=== PATIENT | female | born 1975 | race Caucasian/White ===

== ENCOUNTER → 2017-02-02 | Outpatient (CLI) | payer OTHER ==
[~2017-02-02] MED LIST: ACET500T2 OR; LISI10TA4 OR
--- NOTE | 2017-02-02 10:55 | REPMRS ---
Patient History The patient states she had a clinical breast exam in 02/05 Patient is postmenopausal and has history of endometrial cancer at age 36. Family history of unknown cancer in father at age 60, unknown cancer in mother at age 66, breast cancer in paternal aunt at age 50 or over, unknown cancer in paternal grandmother at age 50 or over, breast cancer in maternal grandmother at age 50 or over, unknown cancer in 2 maternal cousins, unknown cancer in paternal uncle at age 50 or over, prostate cancer in 2 maternal uncles at age 50 or over, and unknown cancer in maternal uncle at age 50 or over. Took hormonal contraceptives for 1 year 6 months. Took unspecified hormones for 2 years. Digital Woman Screen Mammo: February 02, 2017 - Exam #: [id number] Bilateral CC and MLO view(s) were taken. Technologist: Joanie Reyes, Technologist Prior study comparison: January 23, 2016, digital woman screen mammo performed at [facility]. December 28, 2014, digital mammo diagnostic bilateral, performed at [facility]. FINDINGS: There are scattered fibroglandular densities. There has been no change in the appearance of the mammogram from the prior studies. There is a mild amount of residual fibroglandular tissue which is fairly symmetric. There is no interval development of dominant mass, architectural distortion, or clustered microcalcification suggestive of malignancy. ASSESSMENT: BI-RADS/ACR category 1 mammogram. Negative. Recommendation Routine screening mammogram in 1 year (for women over age 40). This mammogram was interpreted with the aid of an FDA-approved computer-aided dectection system. Electronically Signed By: Daniel Hager MD 02/02/17 0709
== END ==
LOC: M WHC 10:23
PROVIDERS: ATTEND Obstetrics & Gynecology
DX: Z12.39 Encounter for other screening for malignant neoplasm of breast (principal)

== ENCOUNTER → 2017-02-26 | Outpatient (REF) | payer OTHER ==
[2017-02-26 13:33] LABS: BASO % 0.4 % (0.0-1.0); EOS # 0.1 K/mm3 (0.0-0.50); EOS % 1.3 % (0.0-3.0); LARGE UNSTAINED CELL # 0.1 K/mm3 (0.0-0.4); LARGE UNSTAINED CELL % 2.1 % (0.0-4.0); LYMPH # 1.7 K/mm3 (1.5-4.5); LYMPH % 33.6 % (24.0-44.0); MEAN CORPUSCULAR HEMOGLOBIN 28.2 pg (27.0-33.0); MEAN CORPUSCULAR HGB CONC 33.2 g/dl (32.0-36.5); MEAN CORPUSCULAR VOLUME 84.8 fl (80.0-96.0); MONO # 0.2 K/mm3 (0.0-0.8); MONO % 4.5 % (0.0-5.0); NEUTROPHILS # 2.8 K/mm3 (1.8-7.7); NEUTROPHILS % 58.1 % (36.0-66.0); PLATELET COUNT, AUTOMATED 262 k/mm3 (150-450); WHITE BLOOD COUNT 4.8 K/mm3 (4.0-10.0)
[2017-02-26 14:07] LABS: ALBUMIN/GLOBULIN RATIO 1.14 (1.00-1.93); ALKALINE PHOSPHATASE 79 U/L (45-117); ALT/SGPT 29 U/L (12-78); ANION GAP 11 MEQ/L (8-16); AST/SGOT 12 U/L (15-37); BILIRUBIN,TOTAL 0.7 MG/DL (0.2-1.0); BLOOD UREA NITROGEN 13 MG/DL (7-18); CALCIUM LEVEL 10.3 MG/DL (8.5-10.1); CARBON DIOXIDE LEVEL 29 MEQ/L (21-32); CHLORIDE LEVEL 104 MEQ/L (98-107); CHOLESTEROL LEVEL 200 MG/DL (<200); CREATININE FOR GFR 0.86 MG/DL (0.55-1.02); FREE T4 1.31 NG/DL (0.76-1.46); GLOMERULAR FILTRATION RATE > 60.0 (>58); GLUCOSE, FASTING 99 MG/DL (70-105); POTASSIUM SERUM 4.5 MEQ/L (3.5-5.1); SODIUM LEVEL 144 MEQ/L (136-145); TOTAL PROTEIN 7.5 GM/DL (6.4-8.2); TRIGLYCERIDES LEVEL 213 MG/DL (<150)
== END ==
LOC: M SFHCADAM 09:09
PROVIDERS: ATTEND Physician Assistant Medical
DX: I10 Essential (primary) hypertension (principal); R73.01 Impaired fasting glucose; E55.9 Vitamin D deficiency, unspecified

== ENCOUNTER → 2017-11-17 | Outpatient (REF) | payer OTHER | LOC: M SFHCADAM 07:33 | DX: E66.01 Morbid (severe) obesity due to excess calories (principal); I10 Essential (primary) hypertension; R73.01 Impaired fasting glucose ==

== ENCOUNTER → 2017-11-18 | Outpatient (REF) | payer OTHER ==
[2017-11-18 21:20] LABS: ESTIMATED AVERAGE GLUCOSE 123 MG/DL (60-110); HEMOGLOBIN A1c 5.9 %
[2017-11-18 21:59] LABS: ALBUMIN 3.8 GM/DL (3.2-5.2); ALBUMIN/GLOBULIN RATIO 1.15 (1.00-1.93); ALKALINE PHOSPHATASE 76 U/L (45-117); ALT/SGPT 27 U/L (12-78); ANION GAP 7 MEQ/L (8-16); AST/SGOT 18 U/L (7-37); BILIRUBIN,TOTAL 0.5 MG/DL (0.2-1.0); BLOOD UREA NITROGEN 13 MG/DL (7-18); CALCIUM LEVEL 9.3 MG/DL (8.5-10.1); CARBON DIOXIDE LEVEL 30 MEQ/L (21-32); CHLORIDE LEVEL 106 MEQ/L (98-107); CHOLESTEROL LEVEL 179 MG/DL (<200); CREATININE FOR GFR 0.81 MG/DL (0.55-1.30); GLOMERULAR FILTRATION RATE > 60.0 (>58); GLUCOSE, FASTING 106 MG/DL (70-100); HDL CHOLESTEROL 50 MG/DL (>40); LDL CHOLESTEROL 95.2 MG/DL (<100); NON-HDL-C 129 MG/DL; POTASSIUM SERUM 3.9 MEQ/L (3.5-5.1); SODIUM LEVEL 143 MEQ/L (136-145); TOTAL PROTEIN 7.1 GM/DL (6.4-8.2); TRIGLYCERIDES LEVEL 169 MG/DL (<150)
[2017-11-18 22:36] LABS: BASO % 0.4 % (0.0-1.0); EOS # 0.1 10^3/uL (0.0-0.50); HEMATOCRIT 37.9 % (36.0-47.0); HEMOGLOBIN 12.3 g/dl (12.0-15.5); IMMATURE GRANULOCYTE % 0.2 % (0-3.0); LYMPH # 1.8 10^3/uL (1.5-4.5); LYMPH % 36.1 % (24.0-44.0); MEAN CORPUSCULAR HEMOGLOBIN 27.5 pg (27.0-33.0); MEAN CORPUSCULAR HGB CONC 32.5 g/dl (32.0-36.5); MEAN CORPUSCULAR VOLUME 84.8 fl (80.0-96.0); MONO # 0.3 10^3/uL (0.0-0.8); MONO % 6.6 % (0.0-5.0); NEUTROPHILS # 2.7 10^3/uL (1.8-7.7); NEUTROPHILS % 55.7 % (36.0-66.0); PLATELET COUNT, AUTOMATED 270 10^3/uL (150-450); RED BLOOD COUNT 4.47 10^6/uL (4.00-5.40); RED CELL DISTRIBUTION WIDTH 13.3 % (11.5-14.5); WHITE BLOOD COUNT 4.9 10^3/uL (4.0-10.0)
== END ==
LOC: M SFHCADAM 08:49
DX: E78.5 Hyperlipidemia, unspecified (principal); I10 Essential (primary) hypertension; R73.01 Impaired fasting glucose

== ENCOUNTER → 2018-02-10 | Outpatient (CLI) | payer OTHER | LOC: M WHC 12:50 | DX: Z12.31 Encounter for screening mammogram for malignant neoplasm of breast (principal) | CPT/HCPCS: 77067 ==

== ENCOUNTER → 2018-04-30 | Outpatient (REF) | payer OTHER ==
[2018-04-30 13:57] LABS: ALBUMIN 3.7 GM/DL (3.2-5.2); ALBUMIN/GLOBULIN RATIO 1.12 (1.00-1.93); ALKALINE PHOSPHATASE 76 U/L (45-117); ALT/SGPT 24 U/L (12-78); ANION GAP 8 MEQ/L (8-16); AST/SGOT 12 U/L (7-37); BILIRUBIN,TOTAL 0.4 MG/DL (0.2-1.0); BLOOD UREA NITROGEN 17 MG/DL (7-18); CALCIUM LEVEL 9.3 MG/DL (8.5-10.1); CARBON DIOXIDE LEVEL 29 MEQ/L (21-32); CHLORIDE LEVEL 103 MEQ/L (98-107); CHOLESTEROL LEVEL 199 MG/DL (<200); CHOLESTEROL RISK RATIO 4.422 (<5); CREATININE FOR GFR 0.84 MG/DL (0.55-1.30); GLOMERULAR FILTRATION RATE > 60.0 (>58); GLUCOSE, FASTING 105 MG/DL (70-100); HDL CHOLESTEROL 45 MG/DL (>40); LDL CHOLESTEROL 105 MG/DL (<100); NON-HDL-C 154 MG/DL; SODIUM LEVEL 140 MEQ/L (136-145); TRIGLYCERIDES LEVEL 245 MG/DL (<150)
[2018-04-30 15:24] LABS: ESTIMATED AVERAGE GLUCOSE 123 MG/DL (60-110); HEMOGLOBIN A1c 5.9 %
== END ==
LOC: M SFHCADAM 08:51
DX: I10 Essential (primary) hypertension (principal); E78.5 Hyperlipidemia, unspecified; R73.01 Impaired fasting glucose

== ENCOUNTER → 2018-10-15 | Outpatient (REF) | payer OTHER ==
[2018-10-15 13:22] LABS: BASO % 0.6 % (0.0-1.0); EOS # 0.1 10^3/uL (0.0-0.50); EOS % 1.4 % (0.0-3.0); HEMATOCRIT 39.7 % (36.0-47.0); HEMOGLOBIN 12.8 g/dl (12.0-15.5); LYMPH # 1.6 10^3/uL (1.5-4.5); LYMPH % 32.3 % (24.0-44.0); MEAN CORPUSCULAR HEMOGLOBIN 27.5 pg (27.0-33.0); MEAN CORPUSCULAR HGB CONC 32.2 g/dl (32.0-36.5); MEAN CORPUSCULAR VOLUME 85.4 fl (80.0-96.0); MONO # 0.4 10^3/uL (0.0-0.8); MONO % 7.1 % (0.0-5.0); NEUTROPHILS % 58.4 % (36.0-66.0); PLATELET COUNT, AUTOMATED 290 10^3/uL (150-450); RED BLOOD COUNT 4.65 10^6/uL (4.00-5.40); WHITE BLOOD COUNT 5.1 10^3/uL (4.0-10.0)
[2018-10-15 13:34] LABS: ALBUMIN 3.7 GM/DL (3.2-5.2); ALT/SGPT 29 U/L (12-78); BILIRUBIN,TOTAL 0.7 MG/DL (0.2-1.0); BLOOD UREA NITROGEN 16 MG/DL (7-18); CALCIUM LEVEL 9.6 MG/DL (8.5-10.1); CARBON DIOXIDE LEVEL 30 MEQ/L (21-32); CHLORIDE LEVEL 104 MEQ/L (98-107); CHOLESTEROL LEVEL 186 MG/DL (<200); CHOLESTEROL RISK RATIO 4.133 (<5); CREATININE FOR GFR 0.92 MG/DL (0.55-1.30); GLOMERULAR FILTRATION RATE > 60.0 (>58); GLUCOSE, FASTING 105 MG/DL (70-100); HDL CHOLESTEROL 45 MG/DL (>40); NON-HDL-C 141 MG/DL; POTASSIUM SERUM 4.6 MEQ/L (3.5-5.1); SODIUM LEVEL 142 MEQ/L (136-145); TOTAL 25(OH) VITAMIN D 23.5 NG/ML (30.0-100.0); TOTAL PROTEIN 7.4 GM/DL (6.4-8.2); TRIGLYCERIDES LEVEL 225 MG/DL (<150)
[2018-10-15 14:51] LABS: MALB URINE SIEMENS 10.6 MG/L; MAU/CREAT RATIO 5.4 MCG/MG (0.0-30.0)
== END ==
LOC: M SFHCADAM 09:00
PROVIDERS: ATTEND Physician Assistant Medical
DX: E66.01 Morbid (severe) obesity due to excess calories (principal); E78.5 Hyperlipidemia, unspecified; E55.9 Vitamin D deficiency, unspecified; R73.01 Impaired fasting glucose

== ENCOUNTER → 2019-04-15 | Outpatient (CLI) | payer OTHER ==
--- NOTE | 2019-04-15 09:49 | REPMRS ---
Patient History The patient states she had a clinical breast exam in 01/2019. Patient is postmenopausal and has history of endometrial cancer at age 36. Family history of breast cancer at age 50 or over in maternal grandmother, breast cancer at age 50 or over in paternal aunt, prostate cancer at age 50 or over in maternal uncle, prostate cancer at age 50 or over in maternal uncle, prostate cancer at age 50 or over in maternal uncle, prostate cancer at age 50 or over in maternal uncle. Took hormonal contraceptives for 1 year 6 months. Took unspecified hormones for 2 years. 3D TOMOSYNTHESIS WAS PERFORMED. The [facility] lifetime risk for breast cancer is 13.4%. Digital Woman Screen Mammo: April 15, 2019 - Exam #: [id number] Bilateral CC and MLO view(s) were taken. Technologist: Amalia Elder, Technologist Prior study comparison: February 10, 2018, bilateral digital woman screen mammo performed at [facility]. February 02, 2017, digital woman screen mammo performed at [facility]. FINDINGS: There are scattered fibroglandular densities. There has been no change in the appearance of the mammogram from the prior studies. There is a mild amount of residual fibroglandular tissue which is fairly symmetric. There is no interval development of dominant mass, architectural distortion, or clustered microcalcification suggestive of malignancy. Assessment: BI-RADS/ACR category 1 mammogram. Negative Mammogram. Recommendation Routine screening mammogram in 1 year (for women over age 40). This mammogram was interpreted with the aid of an FDA-approved computer-aided dectection system. Electronically Signed By: Daniel Hager MD 04/15/19 0913
== END ==
LOC: M WHC 07:57
PROVIDERS: ATTEND Obstetrics & Gynecology
DX: Z12.31 Encounter for screening mammogram for malignant neoplasm of breast (principal)

== ENCOUNTER → 2019-05-02 | Outpatient (REF) | payer OTHER ==
[2019-05-02 13:04] LABS: ALBUMIN 3.5 GM/DL (3.2-5.2); ALT/SGPT 23 U/L (12-78); BILIRUBIN,TOTAL 0.5 MG/DL (0.2-1.0); BLOOD UREA NITROGEN 16 MG/DL (7-18); CALCIUM LEVEL 9.3 MG/DL (8.5-10.1); CARBON DIOXIDE LEVEL 32 MEQ/L (21-32); CHLORIDE LEVEL 104 MEQ/L (98-107); CHOLESTEROL LEVEL 190 MG/DL (<200); CHOLESTEROL RISK RATIO 4.042 (<5); CREATININE FOR GFR 0.99 MG/DL (0.55-1.30); GLOMERULAR FILTRATION RATE > 60.0 (>58); GLUCOSE, FASTING 101 MG/DL (70-100); HDL CHOLESTEROL 47 MG/DL (>40); LDL CHOLESTEROL 100 MG/DL (<100); NON-HDL-C 143 MG/DL; POTASSIUM SERUM 4.4 MEQ/L (3.5-5.1); SODIUM LEVEL 140 MEQ/L (136-145); TOTAL PROTEIN 6.8 GM/DL (6.4-8.2); TRIGLYCERIDES LEVEL 216 MG/DL (<150)
[2019-05-02 14:02] LABS: HEMOGLOBIN A1c 5.9 %
== END ==
LOC: M SFHCADAM 08:48
PROVIDERS: ATTEND Physician Assistant Medical
DX: I10 Essential (primary) hypertension (principal); E66.01 Morbid (severe) obesity due to excess calories; E78.5 Hyperlipidemia, unspecified; E55.9 Vitamin D deficiency, unspecified; R73.01 Impaired fasting glucose; K21.9 Gastro-esophageal reflux disease without esophagitis

== ENCOUNTER → 2019-09-19 | Outpatient (CLI) | payer OTHER ==
--- NOTE | 2019-09-19 17:35 | REP ---
CHEST, TWO VIEWS: There is no evidence of acute infiltrate. No pleural effusion is seen. The heart is normal in size. The mediastinal silhouette is unremarkable. The visualized osseous structures are intact. IMPRESSION: No acute pulmonary disease. Electronically Signed by Daniel Hager MD 09/20/2019 10:27 A
== END ==
LOC: M ADAMS 15:42
PROVIDERS: ATTEND Physician Assistant Medical
DX: R05 Cough (principal); J02.9 Acute pharyngitis, unspecified

== ENCOUNTER → 2019-10-25 | Outpatient (REF) | payer OTHER ==
[2019-10-25 13:11] LABS: HEMATOCRIT 39.2 % (36.0-47.0); HEMOGLOBIN 12.6 g/dl (12.0-15.5); MEAN CORPUSCULAR HEMOGLOBIN 27.2 pg (27.0-33.0); MEAN CORPUSCULAR HGB CONC 32.1 g/dl (32.0-36.5); MEAN CORPUSCULAR VOLUME 84.7 fl (80.0-96.0); PLATELET COUNT, AUTOMATED 266 10^3/uL (150-450); RED BLOOD COUNT 4.63 10^6/uL (4.00-5.40); WHITE BLOOD COUNT 5.8 10^3/uL (4.0-10.0)
[2019-10-25 13:33] LABS: HEMOGLOBIN A1c 6.1 %
[2019-10-25 13:37] LABS: BLOOD UREA NITROGEN 12 MG/DL (7-18); CALCIUM LEVEL 9.6 MG/DL (8.5-10.1); CARBON DIOXIDE LEVEL 30 MEQ/L (21-32); CHLORIDE LEVEL 106 MEQ/L (98-107); CREATININE FOR GFR 0.77 MG/DL (0.55-1.30); GLOMERULAR FILTRATION RATE > 60.0 (>58); GLUCOSE, FASTING 104 MG/DL (70-100); POTASSIUM SERUM 4.3 MEQ/L (3.5-5.1); SODIUM LEVEL 141 MEQ/L (136-145)
[2019-10-25 13:38] LABS: ALBUMIN 3.7 GM/DL (3.2-5.2); ALT/SGPT 25 U/L (12-78); BILIRUBIN,TOTAL 0.4 MG/DL (0.2-1.0)
== END ==
LOC: M SFHCADAM 09:39
PROVIDERS: ATTEND Physician Assistant Medical
DX: K21.9 Gastro-esophageal reflux disease without esophagitis (principal); R73.01 Impaired fasting glucose; R73.03 Prediabetes

== ENCOUNTER → 2020-04-17 | Outpatient (CLI) | payer OTHER ==
--- NOTE | 2020-04-17 13:42 | REP ---
INDICATION: JUDY SCR MAMMO/Z12.31. Family history of breast cancer in maternal grandmother and paternal aunt. COMPARISON: Mammogram 04/15/2019 as well as other prior exams. TECHNIQUE: Digital screening (2D) mammography was performed bilaterally. Additionally, breast tomosynthesis (3D mammography) was performed bilaterally in the CC and MLO projections and compared to the prior exam(s). FINDINGS: There is mild scattered fibroglandular tissue is again seen bilaterally. Anteromedially on the right CC view an irregular nodular density is seen. It measures slightly greater than 1 cm in diameter. It may be projecting inferiorly on the corresponding MLO projection of the right breast. Otherwise no mass or clustered microcalcifications are seen bilaterally. Volpara breast density B. Tyrer-Cuzick lifetime risk of breast cancer 13.2%. IMPRESSION: BI-RADS category 0 incomplete mammogram. Possible irregular nodule anteromedial right breast versus artifact. Recommend spot compression views to further evaluate. Also ultrasound may be necessary. This mammogram was read with the assistance of [employer], an FDA approved computer aided detection system for mammography. Negative x-ray reports should not delay surgical consultation if a dominant or clinically suspicious mass is present. Not all breast cancers can be identified by mammography. Therefore, we recommend that you continue to perform regular breast self-examination and physical examination and then promptly contact your physician of any concerns or changes. Adenosis and dense breasts may obscure an underlying neoplasm. Letter M0. <Electronically signed by Daniel Hager > 04/17/20 0191
== END ==
LOC: M WHC 10:22
PROVIDERS: ATTEND Obstetrics & Gynecology
DX: Z12.31 Encounter for screening mammogram for malignant neoplasm of breast (principal)

== ENCOUNTER → 2020-04-25 | Outpatient (CLI) | payer OTHER ==
--- NOTE | 2020-04-25 11:35 | REP ---
INDICATION: ADDITIONAL VIEWS RT BREAST. COMPARISON: 04/17/2020 as well as other prior exams. TECHNIQUE: Multiple spot compression views and tomographic sequences are obtained to evaluate a possible focal irregular nodular density medially in the right breast. FINDINGS: These multiple spot compression views in tomographic images show that the irregular nodular density compresses out to an unchanged appearance compared other prior studies. There is no persistent nodule or architectural distortion identified on today's additional views. IMPRESSION: BIRADS/ACR category 1, negative. Today's additional views show that the suspected possible irregular nodular density medially in the right breast compresses out to an unchanged appearance compared to other prior exams. Only mild fibroglandular tissue is present at that location. This mammogram was interpreted with the aid of an FDA-approved computer-aided detection system. The patient letter being requested is M 1. RECOMMENDATION: Repeat screening mammography recommended 1 year (for women over 40). <Electronically signed by Daniel Hager > 04/25/20 [id number]
== END ==
LOC: M WHC 10:00
PROVIDERS: ATTEND Obstetrics & Gynecology
DX: Z12.31 Encounter for screening mammogram for malignant neoplasm of breast (principal)

== ENCOUNTER → 2020-06-05 | Outpatient (REF) | payer OTHER ==
[2020-06-05 13:36] LABS: HEMATOCRIT 40.7 % (36.0-47.0); HEMOGLOBIN 12.6 g/dl (12.0-15.5); MEAN CORPUSCULAR HEMOGLOBIN 26.7 pg (27.0-33.0); MEAN CORPUSCULAR VOLUME 86.2 fl (80.0-96.0); PLATELET COUNT, AUTOMATED 273 10^3/uL (150-450); RED BLOOD COUNT 4.72 10^6/uL (4.00-5.40); WHITE BLOOD COUNT 5.7 10^3/uL (4.0-10.0)
[2020-06-05 14:18] LABS: ALT/SGPT 28 U/L (12-78); BILIRUBIN,TOTAL 0.4 MG/DL (0.2-1.0); BLOOD UREA NITROGEN 15 MG/DL (7-18); CALCIUM LEVEL 10.3 MG/DL (8.5-10.1); CARBON DIOXIDE LEVEL 33 MEQ/L (21-32); CHLORIDE LEVEL 105 MEQ/L (98-107); CHOLESTEROL LEVEL 197 MG/DL (<200); CHOLESTEROL RISK RATIO 3.788 (<5); CREATININE FOR GFR 0.99 MG/DL (0.55-1.30); GLOMERULAR FILTRATION RATE > 60.0 (>58); GLUCOSE, FASTING 106 MG/DL (70-100); HDL CHOLESTEROL 52 MG/DL (>40); LDL CHOLESTEROL 111 MG/DL (<100); MALB URINE SIEMENS 36.9 MG/L; MAU/CREAT RATIO 10.6 MCG/MG (0.0-30.0); NON-HDL-C 145 MG/DL; POTASSIUM SERUM 4.6 MEQ/L (3.5-5.1); SODIUM LEVEL 141 MEQ/L (136-145); TOTAL PROTEIN 7.4 GM/DL (6.4-8.2); TRIGLYCERIDES LEVEL 171 MG/DL (<150)
== END ==
LOC: M SFHCADAM 09:11
PROVIDERS: ATTEND Physician Assistant Medical
DX: R73.03 Prediabetes (principal); E78.5 Hyperlipidemia, unspecified; R73.01 Impaired fasting glucose; K21.9 Gastro-esophageal reflux disease without esophagitis

== ENCOUNTER → 2020-11-29 | Outpatient (REF) | payer OTHER ==
[2020-11-29 15:45] LABS: ALBUMIN 3.8 GM/DL (3.2-5.2); ALT/SGPT 24 U/L (12-78); BILIRUBIN,TOTAL 0.7 MG/DL (0.2-1.0); BLOOD UREA NITROGEN 11 MG/DL (7-18); CALCIUM LEVEL 9.6 MG/DL (8.5-10.1); CARBON DIOXIDE LEVEL 29 MEQ/L (21-32); CHLORIDE LEVEL 104 MEQ/L (98-107); CREATININE FOR GFR 0.75 MG/DL (0.55-1.30); GLOMERULAR FILTRATION RATE > 60.0 (>58); GLUCOSE, FASTING 90 MG/DL (70-100); POTASSIUM SERUM 4.3 MEQ/L (3.5-5.1); SODIUM LEVEL 141 MEQ/L (136-145); TOTAL PROTEIN 7.2 GM/DL (6.4-8.2)
[2020-11-29 18:32] LABS: HEMOGLOBIN A1c 5.4 %
== END ==
LOC: M SFHCADAM 08:54
PROVIDERS: ATTEND Physician Assistant Medical
DX: R73.03 Prediabetes (principal); I10 Essential (primary) hypertension; E66.01 Morbid (severe) obesity due to excess calories; E78.5 Hyperlipidemia, unspecified; E55.9 Vitamin D deficiency, unspecified; K21.9 Gastro-esophageal reflux disease without esophagitis

== ENCOUNTER → 2021-01-04 | Outpatient (CLI) | payer OTHER ==
--- NOTE | 2021-01-06 19:53 | HOLTMON ---
[facility] Test Date: 2021-01-04 Pat Name: SHANTELLE WHIPPLE Department: Room: - Gender: Female Probation Counselor: DAVID : 1975 Requested By: MARIA DOLORES Mcdaniels PA-C Order Number: [id number] Reading MD: Justin Saleem Interpretive Statements A LOT OF ARTIFACT Heart rate variability was normal; lowest heart rate was 33 BPM likely during sleep. No significant ST events or pauses. There were multiple isolated PVCs and occasional PACs. No atrial fibrillation was seen. There were brief runs of SVT, the longest being 8 beats at a rate of about 150 bpm, but these did not correlate with any symptoms. There were multiple diary events indicating palpitations. On some of these, isolated PVCs were seen but otherwise the rhythm was sinus during these events. Electronically Signed on 01-06-2021 19:52:39 EDT by Justin Saleem
== END ==
LOC: M EKG 15:48
PROVIDERS: ATTEND Physician Assistant Medical
DX: R00.2 Palpitations (principal)

== ENCOUNTER → 2021-01-04 | Outpatient (REF) | payer OTHER ==
[2021-01-04 11:49] LABS: BASO % 0.4 % (0.0-1.0); EOS # 0.1 10^3/uL (0.0-0.5); EOS % 1.1 % (0.0-3.0); HEMATOCRIT 42.8 % (36.0-47.0); HEMOGLOBIN 13.4 g/dl (12.0-15.5); LYMPH # 1.7 10^3/uL (1.5-5.0); LYMPH % 33.1 % (24.0-44.0); MEAN CORPUSCULAR HEMOGLOBIN 27.2 pg (27.0-33.0); MEAN CORPUSCULAR HGB CONC 31.3 g/dl (32.0-36.5); MEAN CORPUSCULAR VOLUME 86.8 fl (80.0-96.0); MONO # 0.4 10^3/uL (0.0-0.8); MONO % 7.2 % (2.0-8.0); NEUTROPHILS % 57.8 % (36.0-66.0); PLATELET COUNT, AUTOMATED 249 10^3/uL (150-450); RED BLOOD COUNT 4.93 10^6/uL (4.00-5.40); WHITE BLOOD COUNT 5.3 10^3/uL (4.0-10.0)
[2021-01-04 12:40] LABS: ALBUMIN 4.2 GM/DL (3.2-5.2); ALT/SGPT 28 U/L (12-78); BILIRUBIN,TOTAL 0.9 MG/DL (0.2-1.0); BLOOD UREA NITROGEN 9 MG/DL (7-18); CALCIUM LEVEL 9.7 MG/DL (8.5-10.1); CARBON DIOXIDE LEVEL 31 MEQ/L (21-32); CHLORIDE LEVEL 104 MEQ/L (98-107); CREATININE FOR GFR 0.82 MG/DL (0.55-1.30); GLOMERULAR FILTRATION RATE > 60.0 (>58); GLUCOSE, FASTING 101 MG/DL (70-100); MAGNESIUM LEVEL 2.1 MG/DL (1.8-2.4); SODIUM LEVEL 138 MEQ/L (136-145); TOTAL PROTEIN 7.6 GM/DL (6.4-8.2)
== END ==
LOC: M SFHCADAM 09:14
PROVIDERS: ATTEND Physician Assistant Medical
DX: R00.2 Palpitations (principal); R94.31 Abnormal electrocardiogram [ECG] [EKG]

== ENCOUNTER → 2021-05-08 | Outpatient (REF) | payer OTHER ==
[2021-05-08 12:53] LABS: HEMOGLOBIN A1c 5.5 %
[2021-05-08 13:13] LABS: ALBUMIN 3.3 GM/DL (3.2-5.2); ALT/SGPT 23 U/L (12-78); BILIRUBIN,TOTAL 0.5 MG/DL (0.2-1.0); BLOOD UREA NITROGEN 17 MG/DL (7-18); CALCIUM LEVEL 9.5 MG/DL (8.5-10.1); CARBON DIOXIDE LEVEL 32 MEQ/L (21-32); CHLORIDE LEVEL 106 MEQ/L (98-107); CHOLESTEROL LEVEL 192 MG/DL (<200); CREATININE FOR GFR 0.71 MG/DL (0.55-1.30); GLOMERULAR FILTRATION RATE > 60.0 (>58); GLUCOSE, FASTING 85 MG/DL (70-100); HDL CHOLESTEROL 55 MG/DL (>40); LDL CHOLESTEROL 104 MG/DL (<100); NON-HDL-C 137 MG/DL; POTASSIUM SERUM 4.3 MEQ/L (3.5-5.1); SODIUM LEVEL 141 MEQ/L (136-145); TOTAL 25(OH) VITAMIN D 45.8 NG/ML (30.0-100.0); TOTAL PROTEIN 6.6 GM/DL (6.4-8.2); TRIGLYCERIDES LEVEL 164 MG/DL (<150)
== END ==
LOC: M SFHCADAM 09:13
PROVIDERS: ATTEND Physician Assistant Medical
DX: E66.01 Morbid (severe) obesity due to excess calories (principal); E78.5 Hyperlipidemia, unspecified

== ENCOUNTER → 2021-06-06 | Outpatient (CLI) | payer OTHER | LOC: M WHC 09:57 | PROVIDERS: ATTEND Obstetrics & Gynecology | DX: Z53.9 Procedure and treatment not carried out, unspecified reason (principal); R92.8 Other abnormal and inconclusive findings on diagnostic imaging of breast ==

== ENCOUNTER → 2021-08-08 | Outpatient (CLI) | payer OTHER | LOC: M WHC 07:28 | PROVIDERS: ATTEND Obstetrics & Gynecology | DX: Z12.31 Encounter for screening mammogram for malignant neoplasm of breast (principal) ==

== ENCOUNTER → 2022-06-03 | Outpatient (REF) | payer OTHER ==
[2022-06-03 15:10] LABS: CREATININE, URINE 71.5 MG/DL; MALB URINE SIEMENS < 3.0 MG/DL; MAU/CREAT RATIO 4.1 MCG/MG (0.0-30.0)
[2022-06-03 15:16] LABS: THYROID STIMULATING HORMONE 2.489 uIU/ML (0.55-4.78); TOTAL 25(OH) VITAMIN D 48.4 NG/ML (20.0-100.0)
[2022-06-03 15:17] LABS: ALBUMIN 3.4 G/DL (3.2-5.2); ALKALINE PHOSPHATASE 66 U/L (46-116); ALT/SGPT 23 U/L (7.0-40); AST/SGOT 15 U/L (<34); BILIRUBIN,TOTAL 0.6 MG/DL (0.3-1.2); BLOOD UREA NITROGEN 17 MG/DL (9-23); CALCIUM LEVEL 10.1 MG/DL (8.5-10.1); CARBON DIOXIDE LEVEL 28 MMOL/L (20-31); CHLORIDE LEVEL 105 MMOL/L (98-107); CHOLESTEROL LEVEL 193 MG/DL (<200); CHOLESTEROL RISK RATIO 3.84 (<5); CREATININE FOR GFR 0.81 MG/DL (0.55-1.30); GLOMERULAR FILTRATION RATE > 60.0 (>58); GLUCOSE, FASTING 111 MG/DL (60-100); HDL CHOLESTEROL 50.2 MG/DL (>40); LDL CHOLESTEROL 103.2 MG/DL (<100); NON-HDL-C 143 MG/DL; POTASSIUM SERUM 4.4 MMOL/L (3.5-5.1); SODIUM LEVEL 142 MMOL/L (136-145); TOTAL PROTEIN 6.9 G/DL (5.7-8.2); TRIGLYCERIDES LEVEL 198 MG/DL (<150)
[2022-06-03 17:51] LABS: HEMOGLOBIN A1c 5.5 % (4.0-6.0)
== END ==
LOC: M SFHCADAM 08:42
PROVIDERS: ATTEND Physician Assistant Medical
DX: E78.5 Hyperlipidemia, unspecified (principal); E55.9 Vitamin D deficiency, unspecified; R73.03 Prediabetes

== ENCOUNTER → 2022-09-04 | Outpatient (REF) | payer OTHER | LOC: M PLALAB 14:32 | PROVIDERS: ATTEND Nurse Practitioner Family | DX: Z12.4 Encounter for screening for malignant neoplasm of cervix (principal); R87.610 Atypical squamous cells of undetermined significance on cytologic smear of cervix (ASC-US) | CPT/HCPCS: 87624; G0123 ==

== ENCOUNTER → 2022-09-04 | Outpatient (CLI) | payer OTHER | LOC: M WHC 09:53 | PROVIDERS: ATTEND Nurse Practitioner Family | DX: Z12.31 Encounter for screening mammogram for malignant neoplasm of breast (principal) ==

== ENCOUNTER → 2023-01-29 | Outpatient (REF) | payer OTHER ==
[2023-01-29 13:59] LABS: BASO % 0.4 % (0.0-1.0); EOS # 0.1 10^3/uL (0.0-0.5); EOS % 1.3 % (0.0-3.0); HEMATOCRIT 39.9 % (36.0-47.0); HEMOGLOBIN 12.6 g/dl (12.0-15.5); LYMPH # 1.7 10^3/uL (1.5-5.0); LYMPH % 32.8 % (24.0-44.0); MEAN CORPUSCULAR HEMOGLOBIN 26.8 pg (27.0-33.0); MEAN CORPUSCULAR HGB CONC 31.6 g/dl (32.0-36.5); MEAN CORPUSCULAR VOLUME 84.9 fl (80.0-96.0); MONO # 0.4 10^3/uL (0.0-0.8); MONO % 7.2 % (2.0-8.0); NEUTROPHILS % 57.2 % (36.0-66.0); PLATELET COUNT, AUTOMATED 259 10^3/uL (150-450); WHITE BLOOD COUNT 5.3 10^3/uL (4.0-10.0)
[2023-01-29 14:16] LABS: HEMOGLOBIN A1c 6.3 % (4.0-6.0)
[2023-01-29 14:36] LABS: ALBUMIN 3.6 G/DL (3.2-5.2); ALKALINE PHOSPHATASE 81 U/L (46-116); ALT/SGPT 21 U/L (7.0-40); AST/SGOT 10 U/L (<34); BILIRUBIN,TOTAL 0.6 MG/DL (0.3-1.2); BLOOD UREA NITROGEN 13 MG/DL (9-23); CALCIUM LEVEL 9.9 MG/DL (8.5-10.1); CARBON DIOXIDE LEVEL 31 MMOL/L (20-31); CHLORIDE LEVEL 103 MMOL/L (98-107); CHOLESTEROL LEVEL 202 MG/DL (<200); CHOLESTEROL RISK RATIO 4.45 (<5); CREATININE FOR GFR 0.79 MG/DL (0.55-1.30); GLOMERULAR FILTRATION RATE > 60.0 (>58); GLUCOSE, FASTING 111 MG/DL (60-100); HDL CHOLESTEROL 45.3 MG/DL (>40); LDL CHOLESTEROL 107.9 MG/DL (<100); NON-HDL-C 156.7 MG/DL; POTASSIUM SERUM 4.6 MMOL/L (3.5-5.1); SODIUM LEVEL 141 MMOL/L (136-145); THYROID STIMULATING HORMONE 1.953 uIU/ML (0.55-4.78); TOTAL PROTEIN 6.9 G/DL (5.7-8.2); TRIGLYCERIDES LEVEL 244 MG/DL (<150)
== END ==
LOC: M SFHCADAM 07:38
PROVIDERS: ATTEND Physician Assistant Medical
DX: I10 Essential (primary) hypertension (principal); E66.01 Morbid (severe) obesity due to excess calories; E78.5 Hyperlipidemia, unspecified; E55.9 Vitamin D deficiency, unspecified; R73.03 Prediabetes

== ENCOUNTER → 2023-06-26 | Outpatient (REF) | payer OTHER | LOC: M LAB REF 09:14 | PROVIDERS: ATTEND Surgery | DX: D17.24 Benign lipomatous neoplasm of skin and subcutaneous tissue of left leg (principal) ==

== ENCOUNTER → 2023-10-29 | Outpatient (REF) | payer OTHER ==
[2023-10-29 14:21] LABS: HEMOGLOBIN A1c 5.9 % (4.0-6.0)
[2023-10-29 14:24] LABS: ALBUMIN 3.6 G/DL (3.2-5.2); ALKALINE PHOSPHATASE 87 U/L (46-116); ALT/SGPT 28 U/L (7.0-40); AST/SGOT 16 U/L (<34); BILIRUBIN,TOTAL 0.5 MG/DL (0.3-1.2); BLOOD UREA NITROGEN 18 MG/DL (9-23); CALCIUM LEVEL 9.6 MG/DL (8.5-10.1); CARBON DIOXIDE LEVEL 29 MMOL/L (20-31); CHLORIDE LEVEL 102 MMOL/L (98-107); CHOLESTEROL LEVEL 203 MG/DL (<200); CREATININE FOR GFR 0.77 MG/DL (0.55-1.30); GLOMERULAR FILTRATION RATE > 60.0 (>51); GLUCOSE, FASTING 120 MG/DL (60-100); HDL CHOLESTEROL 43.1 MG/DL (>40); LDL CHOLESTEROL 116.7 MG/DL (<100); NON-HDL-C 159.9 MG/DL; POTASSIUM SERUM 4.1 MMOL/L (3.5-5.1); SODIUM LEVEL 139 MMOL/L (136-145); TOTAL PROTEIN 6.8 G/DL (5.7-8.2); TRIGLYCERIDES LEVEL 216 MG/DL (<150)
[2023-10-29 14:25] LABS: THYROID STIMULATING HORMONE 2.953 uIU/ML (0.55-4.78)
== END ==
LOC: M SFHCADAM 07:56
PROVIDERS: ATTEND Physician Assistant Medical
DX: R73.03 Prediabetes (principal); E78.5 Hyperlipidemia, unspecified; E55.9 Vitamin D deficiency, unspecified; E66.01 Morbid (severe) obesity due to excess calories

== ENCOUNTER → 2023-12-16 | Outpatient (CLI) | payer OTHER | LOC: M WHC 08:32 | PROVIDERS: ATTEND Nurse Practitioner Family | DX: Z12.31 Encounter for screening mammogram for malignant neoplasm of breast (principal) ==

== ENCOUNTER → 2024-04-19 | Outpatient (REF) | payer OTHER ==
[2024-04-19 15:02] LABS: BASO % 0.3 % (0.0-1.0); EOS # 0.1 10^3/uL (0.0-0.5); EOS % 1.5 % (0.0-3.0); HEMATOCRIT 41.2 % (36.0-47.0); HEMOGLOBIN 13.4 g/dl (12.0-15.5); LYMPH # 2.2 10^3/uL (1.5-5.0); LYMPH % 31.5 % (24.0-44.0); MEAN CORPUSCULAR HEMOGLOBIN 27.2 pg (27.0-33.0); MEAN CORPUSCULAR HGB CONC 32.5 g/dl (32.0-36.5); MEAN CORPUSCULAR VOLUME 83.6 fl (80.0-96.0); MONO # 0.5 10^3/uL (0.0-0.8); MONO % 6.3 % (2.0-8.0); NEUTROPHILS # 4.3 10^3/uL (1.5-8.5); NEUTROPHILS % 60.1 % (36.0-66.0); PLATELET COUNT, AUTOMATED 360 10^3/uL (150-450); RED BLOOD COUNT 4.93 10^6/uL (4.00-5.40); WHITE BLOOD COUNT 7.1 10^3/uL (4.0-10.0)
[2024-04-19 15:12] LABS: HEMOGLOBIN A1c 5.4 % (4.0-6.0)
[2024-04-19 15:33] LABS: ALBUMIN 3.7 G/DL (3.2-5.2); ALKALINE PHOSPHATASE 95 U/L (35-104); ALT/SGPT 18 U/L (7.0-40); AST/SGOT 10 U/L (<34); BILIRUBIN,TOTAL 0.5 MG/DL (0.3-1.2); BLOOD UREA NITROGEN 16 MG/DL (9-23); CALCIUM LEVEL 9.8 MG/DL (8.5-10.1); CARBON DIOXIDE LEVEL 30 MMOL/L (20-31); CHLORIDE LEVEL 106 MMOL/L (98-107); CHOLESTEROL LEVEL 170 MG/DL (<200); CHOLESTEROL RISK RATIO 4.16 (<5); CREATININE FOR GFR 0.86 MG/DL (0.55-1.30); GLOMERULAR FILTRATION RATE > 60.0 (>51); GLUCOSE, FASTING 101 MG/DL (60-100); HDL CHOLESTEROL 40.8 MG/DL (>40); LDL CHOLESTEROL 82.4 MG/DL (<100); NON-HDL-C 129.2 MG/DL; POTASSIUM SERUM 3.9 MMOL/L (3.5-5.1); SODIUM LEVEL 141 MMOL/L (136-145); TOTAL PROTEIN 7.1 G/DL (5.7-8.2); TRIGLYCERIDES LEVEL 234 MG/DL (<150)
[2024-04-19 15:35] LABS: THYROID STIMULATING HORMONE 2.658 uIU/ML (0.55-4.78)
[2024-04-19 15:36] LABS: TOTAL 25(OH) VITAMIN D 59.1 NG/ML (20.0-100.0)
== END ==
LOC: M SFHCADAM 08:03
PROVIDERS: ATTEND Physician Assistant Medical
DX: E66.01 Morbid (severe) obesity due to excess calories (principal); I10 Essential (primary) hypertension; E78.5 Hyperlipidemia, unspecified; E55.9 Vitamin D deficiency, unspecified; R73.03 Prediabetes

== ENCOUNTER → 2024-11-04 | Outpatient (REF) | payer OTHER ==
[2024-11-04 13:56] LABS: BLOOD UREA NITROGEN 18 MG/DL (9-23); CREATININE FOR GFR 0.77 MG/DL (0.55-1.30); GLOMERULAR FILTRATION RATE > 90.0 (>51)
== END ==
LOC: M LABDRWAD 12:54
PROVIDERS: ATTEND Psychiatry & Neurology Neurology
DX: I10 Essential (primary) hypertension (principal)

== ENCOUNTER → 2024-12-26 | Outpatient (CLI) | payer OTHER ==
[2024-12-26 14:26] LABS: BASO # 0.0 10^3/uL (0.0-0.2); BASO % 0.7 % (0.0-1.0); EOS # 0.1 10^3/uL (0.0-0.5); EOS % 1.7 % (0.0-3.0); LYMPH # 2.0 10^3/uL (1.5-5.0); LYMPH % 33.4 % (24.0-44.0); MONO # 0.4 10^3/uL (0.0-0.8); MONO % 6.1 % (2.0-8.0); NEUTROPHILS # 3.4 10^3/uL (1.5-8.5); NEUTROPHILS % 57.8 % (36.0-66.0); PLATELET COUNT, AUTOMATED 309 10^3/uL (150-450)
[2024-12-26 14:28] LABS: ALT/SGPT 21.0 U/L (7.0-40); AST/SGOT 16.0 U/L (<34); CALCIUM LEVEL 10.1 MG/DL (8.5-10.1); CARBON DIOXIDE LEVEL 32.0 MMOL/L (20-31); CHLORIDE LEVEL 104.0 MMOL/L (98-107); CHOLESTEROL LEVEL 186.0 MG/DL (<200); CHOLESTEROL RISK RATIO 3.99 (<5); CREATININE FOR GFR 0.84 MG/DL (0.55-1.30); GLOMERULAR FILTRATION RATE 84.1 (>51); LDL CHOLESTEROL 89.2 MG/DL (<100); NON-HDL-C 139.4 MG/DL; POTASSIUM SERUM 4.7 MMOL/L (3.5-5.1); SODIUM LEVEL 145.0 MMOL/L (136-145); TRIGLYCERIDES LEVEL 251.0 MG/DL (<150)
[2024-12-26 14:29] LABS: TOTAL 25(OH) VITAMIN D 57.7 NG/ML (20.0-100.0)
[2024-12-26 14:34] LABS: ESTIMATED AVERAGE GLUCOSE 120.0 MG/DL (60-110)
== END ==
LOC: M PLALAB 09:08
PROVIDERS: ATTEND Physician Assistant Medical
DX: I10 Essential (primary) hypertension (principal); E66.01 Morbid (severe) obesity due to excess calories; K21.9 Gastro-esophageal reflux disease without esophagitis; R73.03 Prediabetes